=== PATIENT | female | born 1980 | race Two or more races ===

== ENCOUNTER 2017-04-23 19:00 | Emergency (ER) | payer MEDICAID ==
[~2017-04-23] VITALS: Ht 152.4 cm; Wt 54.5 kg
[2017-04-23 19:06] VITALS: BP 132/82
== END 2017-04-23 19:32 | disposition home or self-care (01) ==
LOC: ED 19:26
DX: K02.9 Dental caries, unspecified (principal); F17.210 Nicotine dependence, cigarettes, uncomplicated
CPT/HCPCS: 99283

== ENCOUNTER 2018-04-24 03:11 | Emergency (ER) | payer SELFPAY ==
[~2018-04-24] VITALS: Ht 152.4 cm; Wt 59.1 kg
[2018-04-24] VITALS (7 sets, daily range): BP systolic 130–161; BP diastolic 44–98
[2018-04-24] MEDS ORDERED: ONDANSETRON ODT 4 MG ONE (03:48)
[2018-04-24 03:59] LABS: ALANINE AMINOTRANSFERASE 24 U/L (12-78); ALBUMIN 2.8 g/dL (3.4-5.0); ANION GAP 7 mmol/L (5-15); CALCIUM 8.8 mg/dL (8.5-10.1); CHLORIDE 109 mmol/L (98-107); CREATININE 0.83 mg/dL (0.55-1.02)
[2018-04-24] MEDS ORDERED: ONDANSETRON ODT 4 MG PO ONE (04:00)
[2018-04-24 04:03] LABS: ALKALINE PHOSPHATASE 90 U/L (45-117); BILIRUBIN,TOTAL 0.2 mg/dL (0.2-1.0); TOTAL PROTEIN 6.9 g/dL (6.4-8.2)
[2018-04-24 04:17] LABS: MEAN CORPUSCULAR HGB CONC 30.4 g/dL (32.4-35.8); MEAN CORPUSCULAR VOLUME 62.4 fL (80-100); MEAN PLATELET VOLUME 8.3 fL (7.4-10.4); PLATELET COUNT 400 x10^3/uL (130-400); RED BLOOD COUNT 3.67 x10^6/uL (3.82-5.3); RED CELL DISTRIBUTION WIDTH 18.2 % (9.6-15.2)
[2018-04-24 04:23] LABS: MD YES
[2018-04-24 04:26] LABS: BAND#(MANUAL) 0.12 x10^3/uL; BANDS%(MANUAL) 1 % (0-7); BASOS#(MANUAL) 0.12 x10^3/uL (0-0.1); BASOS% (MANUAL) 1 % (0-1); EOS#(MANUAL) 0.12 x10^3/uL (0.0-0.4); EOS% (MANUAL) 1 % (1-7); LYMPH#(MANUAL) 1.73 x10^3/uL (1-3.4); LYMPHS% (MANUAL) 15 % (22-44); METAMYELOCYTES# (MANUAL) 0.12 x10^3/uL (0-0); METAMYELOCYTES% (MANUAL) 1 % (0-1); MONOS#(MANUAL) 0.35 x10^3/uL (0.3-2.7); MONOS% (MANUAL) 3 % (2-9); SEG#(MANUAL) 8.97 x10^3/uL (1.8-6.8); SEGS% (MANUAL) 78 % (42-75)
[2018-04-24 04:27] LABS: ANISOCYTOSIS 1+
[2018-04-24 04:28] LABS: HYPOCHROMIA 2+; MICROCYTOSIS 2+
[2018-04-24 04:29] LABS: POLYCHROMASIA 1+
[2018-04-24 04:30] LABS: OVALOCYTES 1+
[2018-04-24 04:31] LABS: <PLATELET ESTIMATE> ADEQUATE; LARGE PLATELETS 1+; TARGET CELLS 1+; TOXIC GRAN 1+
[2018-04-24 04:42] LABS: CULTURE INDICATED? YES; MICROSCOPIC INDICATED
[2018-04-24] MEDS ORDERED: ONDANSETRON 2MG/ML, 2ML ONE (09:44)
[2018-04-24] MEDS ORDERED: ONDANSETRON 2MG/ML, 2ML IVPush ONE (10:00)
[2018-04-24] MEDS ORDERED: HYDROcodone/APAP 10/325 MG TABLET ONE (10:13)
[2018-04-24] MEDS ORDERED: HYDROcodone/APAP 10/325 MG TABLET PO ONE (10:30)
== END 2018-04-24 10:28 | disposition home or self-care (01) ==
LOC: ED 04:00
DX: J18.9 Pneumonia, unspecified organism (principal); R05 Cough; D50.8 Other iron deficiency anemias
CPT/HCPCS: 36415; 36430; 71046; 80053; 81001; 83690; 84703; 85025; 86850; 86900; 86923; 87086; 93005; 96374; 99285; J2405; P9016; Q0162

== ENCOUNTER 2018-05-23 00:27 | Emergency (ER) | payer MEDICAID ==
[~2018-05-23] VITALS: Ht 154.9 cm; Wt 54.5 kg
[2018-05-23] MEDS ORDERED: DIPHENHYDRAMINE 25 MG CAPSULE ONE (01:30)
[2018-05-23] MEDS ORDERED: DIPHENHYDRAMINE 25 MG CAPSULE PO ONE (01:30)
[2018-05-23 01:36] VITALS: BP 132/86
== END 2018-05-23 01:52 | disposition home or self-care (01) ==
LOC: ED 00:54
DX: L50.0 Allergic urticaria (principal); Z87.891 Personal history of nicotine dependence
CPT/HCPCS: 99283; J7512; Q0163

== ENCOUNTER 2018-05-25 00:25 | Emergency (ER) | payer MEDICAID ==
[~2018-05-25] VITALS: Ht 152.4 cm; Wt 55.1 kg
[2018-05-25 00:27] VITALS: BP 165/115
[2018-05-25] MEDS ORDERED: FLUCONAZOLE 100 MG TABLET ONE (01:29)
[2018-05-25] MEDS ORDERED: FLUCONAZOLE 100 MG TABLET PO ONE (01:30)
== END 2018-05-25 01:44 | disposition home or self-care (01) ==
LOC: ED 00:54
DX: B35.0 Tinea barbae and tinea capitis (principal); Z87.891 Personal history of nicotine dependence; Z86.19 Personal history of other infectious and parasitic diseases
CPT/HCPCS: 99282

== ENCOUNTER 2020-01-13 05:57 | Emergency (ER) | payer MEDICAID ==
[~2020-01-13] VITALS: Ht 154.9 cm; Wt 57.5 kg
[2020-01-13 05:58] VITALS: BP 154/90
--- NOTE | 2020-01-13 06:43 | NUR ---
FEVER/CHILLS, CP, SOB, DECREASE APPETITE X 1 WEEK. PT ATTACHED TO BP AND O2 MONITOR.
[2020-01-13] MEDS ORDERED: ONDANSETRON ODT 4 MG ONE (06:51)
[2020-01-13 06:56] LABS: ALANINE AMINOTRANSFERASE 31 U/L (12-78); ALBUMIN 3.6 g/dL (3.4-5.0); ANION GAP 4 mmol/L (5-15); CALCIUM 8.8 mg/dL (8.5-10.1); CHLORIDE 112 mmol/L (98-107); CREATININE 0.74 mg/dL (0.55-1.02)
[2020-01-13] MEDS ORDERED: ONDANSETRON ODT 4 MG PO ONE (07:00)
[2020-01-13 07:01] LABS: ALKALINE PHOSPHATASE 111 U/L (45-117); BILIRUBIN,TOTAL 0.5 mg/dL (0.2-1.0); TOTAL PROTEIN 7.9 g/dL (6.4-8.2)
[2020-01-13 07:28] LABS: MICROSCOPIC INDICATED
[2020-01-13 07:49] LABS: MEAN CORPUSCULAR HEMOGLOBIN 18.1 pg (27.0-34.8); MEAN CORPUSCULAR VOLUME 60.9 fL (80-100); MEAN PLATELET VOLUME 7.6 fL (7.4-10.4); PLATELET COUNT 418 x10^3/uL (130-400); RED BLOOD COUNT 4.62 x10^6/uL (3.82-5.3); RED CELL DISTRIBUTION WIDTH 20.8 % (9.6-15.2)
[2020-01-13 07:53] LABS: MD YES
[2020-01-13 07:54] LABS: EOS#(MANUAL) 0.39 x10^3/uL (0.0-0.4); EOS% (MANUAL) 4 % (1-7); LYMPH#(MANUAL) 1.96 x10^3/uL (1-3.4); LYMPHS% (MANUAL) 20 % (22-44); MONOS#(MANUAL) 0.29 x10^3/uL (0.3-2.7); MONOS% (MANUAL) 3 % (2-9); SEG#(MANUAL) 7.06 x10^3/uL (1.8-6.8); SEGS% (MANUAL) 72 % (42-75)
[2020-01-13 07:55] LABS: <PLATELET ESTIMATE> INCREASED; BASOS% (MANUAL) 1 % (0-1); GIANT PLATELETS 1+; LARGE PLATELETS 1+
[2020-01-13 07:56] LABS: ANISOCYTOSIS 1+; HYPOCHROMIA 2+; MICROCYTOSIS 3+
[2020-01-13 07:57] LABS: MEAN CORPUSCULAR HGB CONC 29.8 g/dL (32.4-35.8)
== END 2020-01-13 09:17 | disposition home or self-care (01) ==
LOC: ED 06:56
DX: D50.8 Other iron deficiency anemias (principal); R05 Cough; R10.84 Generalized abdominal pain; J02.9 Acute pharyngitis, unspecified; R94.31 Abnormal electrocardiogram [ECG] [EKG]; R06.00 Dyspnea, unspecified; Z87.891 Personal history of nicotine dependence
CPT/HCPCS: 36415; 74022; 80053; 81001; 83690; 84703; 85025; 87086; 93005; 99285; Q0162; 87635